=== PATIENT | female | born 1995 | race African-American/Black ===

== ENCOUNTER 2019-02-05 14:58 | Inpatient (IN) ==
[2019-02-05] MEDS ORDERED: ACETAMINOPHEN 325 MG TABLET PO PRN (15:13)
[2019-02-05] MEDS ORDERED: BUTORPHANOL 2 MG/ML VIAL IV PRN (15:13)
[2019-02-05] MEDS ORDERED: MEPERIDINE 50 MG/1 ML VIAL IV PRN (15:13)
[2019-02-05] MEDS ORDERED: ONDANSETRON 4 MG/2 ML VIAL IV PRN (15:13)
[2019-02-05] MEDS ORDERED: DINOPROSTONE VAG GEL 10 MG SYRINGE VAG ONE (15:29)
[2019-02-05 15:40] LABS: Basophils % 0.2 % (0.0-0.8); Eosinophils % 0.4 % (0.00-10.9); Hematocrit 30.6 VOL% (35.7-47.0); Immature Granulocytes % 0.6 %; Immature Granulocytes Absolute 0.03 #; Lymphocytes # 1.5 10*3/uL (1.4-4.0); Lymphocytes % 30.3 % (21.3-54.2); Mean Corpuscular HGB Conc 32.7 GM/DL (32-36); Mean Corpuscular Volume 95.9 FL (87-102); Mean Platelet Volume 9.4 FL (9.6-12.0); Monocytes % 9.4 % (1.7-12.7); Neutrophils % 59.1 % (38.7-73.9); Platelet Count 244 T/CUMM (130-400); Red Blood Count 3.19 MC/CUMM (3.8-5.5); Red Cell Distribution Width 13.6 % (9.3-17.3); White Blood Count 4.9 T/CUMM (4-12)
[2019-02-05 16:03] LABS: Albumin 2.5 G/DL (3.4-5.0); Calcium 8.1 MG/DL (8.5-10.1); Osmolality,Calculated 273.7 MOS/KG (273-304); Total Protein 6.8 G/DL (6.4-8.3)
[2019-02-05] MEDS ORDERED: diphenhydrAMINE 50 MG/1 ML VIAL IV ONE (18:00)
[2019-02-05] MEDS: LACTATED RINGERS 1,000 ML IV SCH ×2 (18:10→20:56)
[2019-02-05] MEDS ORDERED: hydrOXYzine HCL 25 MG/1 ML VIAL IM PRN (20:05)
[2019-02-05] MEDS ORDERED: PROMETHAZINE 25 MG/1 ML VIAL IM ONE (20:05)
[2019-02-05] MEDS ORDERED: NALOXONE 0.4 MG/ML VIAL IV PRN (20:05)
[2019-02-05] MEDS ORDERED: diphenhydrAMINE 50 MG/1 ML VIAL IV PRN ×2 (20:05)
[2019-02-05] MEDS ORDERED: ePHEDrine 50 MG/ML AMP IV PRN (20:05)
[2019-02-05] MEDS ORDERED: CITRIC ACID/SODIUM CITRATE 30 ML UDCUP PO ONE (20:06)
[2019-02-05] MEDS ORDERED: FAMOTIDINE 20 MG/2 ML VIAL IV ONE (20:06)
[2019-02-05] MEDS ORDERED: fentaNYL 2 MCG/ROPIV 0.2% EPID 100 ML EPIDURAL SCH (20:30)
[2019-02-06] MEDS ORDERED: OXYTOCIN/LR 30 UNIT/1,000 ML BAG IV ONE (01:03)
[2019-02-06] MEDS ORDERED: miSOPROStol 200 MCG TABLET ONE (01:04)
[2019-02-06] MEDS ORDERED: CARBOPROST TROMETHAMINE 250 MCG/ML AMP IM ONE (01:05)
[2019-02-06] MEDS ORDERED: METHYLERGONOVINE 0.2 MG/1 ML AMP ONE (01:05)
[2019-02-06] MEDS ORDERED: OXYTOCIN/LR 20 UNIT/1,000 ML BAG IV SCH (02:00)
[2019-02-06 04:11] LABS: Cord Venous Blood HCO3 23.5 MMOL/L; Cord Venous Blood PCO2 44.1 MMHG; Cord Venous Blood PO2 31.5 MMHG
[2019-02-06] MEDS ORDERED: MEASLES/MUMPS/RUBELLA VACCINE 0.5 ML VIAL SUBCUT ONE (04:32)
[2019-02-06] MEDS ORDERED: BISACODYL 10 MG SUPP RECTAL PRN (04:32)
[2019-02-06] MEDS ORDERED: WITCH HAZEL PADS 100/JAR TOP PRN (04:32)
[2019-02-06] MEDS ORDERED: LANOLIN 50% CREAM 0.3 OZ TUBE TOP PRN (04:32)
[2019-02-06] MEDS ORDERED: HYDROCORTISONE 2.5% RECTAL CREAM 30 GM TUBE TOP PRN (04:32)
[2019-02-06] MEDS ORDERED: ACETAMINOPHEN 325 MG TABLET PO PRN (04:32)
[2019-02-06] MEDS ORDERED: oxyCODONE/ACETAMINOPHEN 5-325 MG TABLET PO PRN (04:32)
[2019-02-06] MEDS ORDERED: ONDANSETRON 4 MG/2 ML VIAL IV PRN (04:32)
[2019-02-06] MEDS ORDERED: OXYTOCIN/LR 20 UNIT/1,000 ML BAG IV ONE (04:32)
[2019-02-06] MEDS ORDERED: BENZOCAINE 20%/MENTHOL 0.5% SPRAY 56 GM CAN TOP PRN (04:32)
[2019-02-06] MEDS ORDERED: RHO(D) IMMUNE GLOBULIN 300 MCG SYRINGE IM ONE (04:32)
[2019-02-06] MEDS ORDERED: DIPH/TET/ACEL PERT BOOSTER VACCINE 0.5 ML VIAL IM ONE (04:32)
[2019-02-06] MEDS: IBUPROFEN 800 MG TABLET PO PRN ×2 (06:06→15:45)
[2019-02-06] MEDS: oxyCODONE/ACETAMINOPHEN 5-325 MG TABLET PO PRN ×3 (08:52→22:07)
[2019-02-06] MEDS: DOCUSATE SODIUM 100 MG CAPSULE PO SCH ×2 (08:52→22:07)
[2019-02-07] MEDS: oxyCODONE/ACETAMINOPHEN 5-325 MG TABLET PO PRN (04:20)
[2019-02-07 05:44] LABS: Basophils % 0.1 % (0.0-0.8); Eosinophils % 0.5 % (0.00-10.9); Hematocrit 29.4 VOL% (35.7-47.0); Hemoglobin 9.7 GM/DL (12.0-16.0); Immature Granulocytes % 0.4 %; Immature Granulocytes Absolute 0.03 #; Lymphocytes # 1.8 10*3/uL (1.4-4.0); Lymphocytes % 24.5 % (21.3-54.2); Mean Corpuscular Volume 92.2 FL (87-102); Mean Platelet Volume 9.6 FL (9.6-12.0); Monocytes % 6.8 % (1.7-12.7); Neutrophils % 67.7 % (38.7-73.9); Platelet Count 242 T/CUMM (130-400); Red Blood Count 3.19 MC/CUMM (3.8-5.5); Red Cell Distribution Width 13.5 % (9.3-17.3); White Blood Count 7.5 T/CUMM (4-12)
[2019-02-07] MEDS: IBUPROFEN 800 MG TABLET PO PRN ×2 (08:58→14:40)
[2019-02-07] MEDS: DOCUSATE SODIUM 100 MG CAPSULE PO SCH (08:58)
[2019-02-07 11:13] VITALS: BP 111/66
[2019-02-08] MEDS ORDERED: INFLUENZA VIRUS VACCINE 0.5 ML SYRINGE IM ONE (15:44)
== END 2019-02-07 16:45 | disposition home or self-care (01) | DRG 560 ==
LOC: N.LAB 14:58 → N.LD 15:00 → N.OB 02-06 08:46
PROVIDERS: ADMIT Obstetrics & Gynecology; ATTEND Obstetrics & Gynecology

== ENCOUNTER 2021-10-18 23:54 | Inpatient (IN) ==
[2021-10-19] MEDS ORDERED: OXYTOCIN/LR 20 UNIT/1,000 ML BAG IV ONE ×2 (00:02→12:50)
[2021-10-19] MEDS ORDERED: LACTATED RINGERS 500 ML IV PRN (00:02)
[2021-10-19] MEDS ORDERED: BUTORPHANOL 2 MG/ML VIAL IV PRN (00:02)
[2021-10-19] MEDS ORDERED: ACETAMINOPHEN 500 MG TABLET PO PRN (00:02)
[2021-10-19] MEDS ORDERED: CARBOPROST TROMETHAMINE 250 MCG/ML AMP IM PRN (00:02)
[2021-10-19] MEDS ORDERED: miSOPROStoL 200 MCG TABLET RECTAL PRN (00:02)
[2021-10-19] MEDS ORDERED: MEPERIDINE 50 MG/1 ML VIAL IV PRN (00:02)
[2021-10-19] MEDS ORDERED: BUTORPHANOL 1 MG/ML VIAL IV PRN (00:02)
[2021-10-19] MEDS ORDERED: FAMOTIDINE 20 MG/2 ML VIAL IV PRN (00:02)
[2021-10-19] MEDS ORDERED: METHYLERGONOVINE 0.2 MG/1 ML AMP IM PRN (00:02)
[2021-10-19] MEDS ORDERED: ONDANSETRON 4 MG/2 ML VIAL IV PRN (00:02)
[2021-10-19] MEDS ORDERED: TRANEXAMIC ACID 1,000 MG in SODIUM CHLORIDE 0.9% 100 ML IV PRN (00:02)
[2021-10-19] MEDS: LACTATED RINGERS 1,000 ML IV SCH ×3 (00:38→15:12)
[2021-10-19 00:43] LABS: Basophils % 0.2 % (0.0-0.8); Eosinophils % 0.2 % (0.00-10.9); Hematocrit 30.4 VOL% (35.7-47.0); Hemoglobin 9.6 GM/DL (12.0-16.0); Immature Granulocytes % 0.8 %; Immature Granulocytes Absolute 0.04 #; Lymphocytes # 1.8 10*3/uL (1.4-4.0); Lymphocytes % 35.4 % (21.3-54.2); Mean Corpuscular HGB Conc 31.6 GM/DL (32-36); Mean Corpuscular Volume 84.2 FL (87-102); Monocytes # 0.5 10*3/uL (0.11-0.8); Monocytes % 9.2 % (1.7-12.7); Neutrophils % 54.2 % (38.7-73.9); Platelet Count 382 T/CUMM (130-400); Red Blood Count 3.61 MC/CUMM (3.8-5.5); Red Cell Distribution Width 14.4 % (9.3-17.3); White Blood Count 5.1 T/CUMM (4-12)
[2021-10-19 01:22] LABS: Alanine Aminotransferase 18 U/L (13-56); Albumin 2.6 G/DL (3.4-5.0); Alkaline Phosphatase 125 U/L (45-117); Aspartate Amino Transferase 17 U/L (0-37); Bilirubin,Total < 0.39 MG/DL (0.20-1.00); Blood Urea Nitrogen 9 MG/DL (7-18); Calcium 8.5 MG/DL (8.5-10.1); Carbon Dioxide 23 MMOL/L (21-32); Chloride 110 MMOL/L (98-107); Glucose 125 MG/DL (74-106); Osmolality,Calculated 276.5 MOS/KG (273-304); Potassium 3.5 MMOL/L (3.5-5.1); Sodium 139 MMOL/L (136-145); Total Protein 7.1 G/DL (6.4-8.2)
[2021-10-19 01:30] LABS: Reactive Lymphocytes 1+
[2021-10-19 01:31] LABS: Hypochromia 1+; Ovalocytes 1+; Platelet Estimate Increased; Tear Drop Cells Few
[2021-10-19] MEDS ORDERED: OXYTOCIN/LR 20 UNIT/1,000 ML BAG IV SCH (03:00)
[2021-10-19 04:03] LABS: Glucose,Urine (UA) Negative (Negative); Hyaline Casts,Urine 2 /LPF (0-3); Mucus,Urine Many /LPF (Occasional); Protein,Urine Trace mg/dL (Negative); Squamous Epithelial Cell,Urine Occasional /HPF (0-10); Urine Appearance Clear (Clear); Urine Color Yellow (Yellow); Urine Specific Gravity 1.025 (1.001-1.035)
[2021-10-19 04:04] LABS: Bilirubin,Urine Negative (Negative); Blood, Urine Negative (Negative); Ketones,Urine Negative (Negative); Nitrite,Urine Negative (Negative)
[2021-10-19 06:27] LABS: RPR Confirm - Less than 1 yr REACTIVE (Nonreactive)
[2021-10-19] MEDS ORDERED: hydrOXYzine HCL 25 MG/1 ML VIAL IM PRN (07:39)
[2021-10-19] MEDS ORDERED: CITRIC ACID/SODIUM CITRATE 30 ML UDCUP PO ONE (07:39)
[2021-10-19] MEDS ORDERED: LACTATED RINGERS 1,000 ML IV ONE (07:39)
[2021-10-19] MEDS ORDERED: ePHEDrine 50 MG/ML VIAL IV PRN (07:39)
[2021-10-19] MEDS ORDERED: diphenhydrAMINE 50 MG/1 ML VIAL IV PRN ×2 (07:39)
[2021-10-19] MEDS ORDERED: NALOXONE 0.4 MG/ML VIAL IV PRN (07:39)
[2021-10-19] MEDS ORDERED: PROMETHAZINE 25 MG/1 ML VIAL IM ONE (07:39)
[2021-10-19] MEDS ORDERED: fentaNYL 2 MCG/ROPIV 0.2% EPID 100 ML EPIDURAL SCH (08:00)
[2021-10-19 09:50] LABS: Mucus,Urine Moderate /LPF (Occasional); RBC,Urine 2 /HPF (0-4); Squamous Epithelial Cell,Urine Occasional /HPF (0-10)
[2021-10-19 09:51] LABS: Bilirubin,Urine Negative (Negative); Blood, Urine Negative (Negative); Glucose,Urine (UA) Negative (Negative); Ketones,Urine Negative (Negative); Nitrite,Urine Negative (Negative); Protein,Urine Trace mg/dL (Negative); Urine Appearance Clear (Clear); Urine Color Yellow (Yellow); Urine Specific Gravity 1.025 (1.001-1.035)
[2021-10-19] MEDS ORDERED: miSOPROStoL 200 MCG TABLET ONE (12:49)
[2021-10-19] MEDS ORDERED: TRANEXAMIC ACID 1,000 MG/10 ML VIAL ONE (12:49)
[2021-10-19] MEDS ORDERED: CARBOPROST TROMETHAMINE 250 MCG/ML AMP IM ONE (12:50)
[2021-10-19] MEDS ORDERED: METHYLERGONOVINE 0.2 MG/1 ML AMP ONE (12:50)
[2021-10-19] MEDS ORDERED: SODIUM CHLORIDE 0.9% 0 ML IV ONE (12:50)
[2021-10-19 15:58] LABS: Cord Venous Blood HCO3 23.7 MMOL/L; Cord Venous Blood PCO2 43.5 MMHG; Cord Venous Blood PO2 29.9
[2021-10-19] MEDS ORDERED: oxyCODONE/ACETAMINOPHEN 5-325 MG TABLET PO ONE (19:28)
[2021-10-19] MEDS ORDERED: oxyCODONE/ACETAMINOPHEN 5-325 MG TABLET PO PRN (21:31)
[2021-10-19] MEDS: IBUPROFEN 800 MG TABLET PO PRN (21:43)
[2021-10-19] MEDS ORDERED: HYDROCORTISONE 2.5% RECTAL CREAM 30 GM TUBE TOP PRN (22:18)
[2021-10-19] MEDS ORDERED: BENZOCAINE 20%/MENTHOL 0.5% SPRAY 56 GM CAN TOP PRN (22:19)
[2021-10-19] MEDS ORDERED: WITCH HAZEL PADS 100/JAR TOP PRN (22:19)
[2021-10-20] MEDS: IBUPROFEN 800 MG TABLET PO PRN ×3 (03:41→21:05)
[2021-10-20] MEDS: oxyCODONE/ACETAMINOPHEN 5-325 MG TABLET PO PRN ×4 (03:42→22:17)
[2021-10-20 04:41] LABS: Eosinophils % 0.4 % (0.00-10.9); Hematocrit 27.8 VOL% (35.7-47.0); Hemoglobin 8.9 GM/DL (12.0-16.0); Immature Granulocytes % 0.4 %; Immature Granulocytes Absolute 0.04 #; Lymphocytes # 1.8 10*3/uL (1.4-4.0); Lymphocytes % 19.9 % (21.3-54.2); Mean Platelet Volume 9.8 FL (9.6-12.0); Monocytes # 0.9 10*3/uL (0.11-0.8); Monocytes % 9.5 % (1.7-12.7); Neutrophils % 69.8 % (38.7-73.9); Platelet Count 312 T/CUMM (130-400); Red Blood Count 3.35 MC/CUMM (3.8-5.5); Red Cell Distribution Width 14.4 % (9.3-17.3)
[2021-10-20] MEDS: FERROUS SULFATE 325 MG TABLET PO SCH ×3 (08:38→21:06)
[2021-10-20] MEDS: DOCUSATE SODIUM 100 MG CAPSULE PO SCH ×2 (08:38→21:06)
[2021-10-20] MEDS: MULTIVITAMIN (PRENATAL) TABLET PO SCH (10:33)
[2021-10-21] MEDS: IBUPROFEN 800 MG TABLET PO PRN ×2 (03:38→10:27)
[2021-10-21 07:26] VITALS: BP 95/56
[2021-10-21] MEDS: MULTIVITAMIN (PRENATAL) TABLET PO SCH (08:33)
[2021-10-21] MEDS: DOCUSATE SODIUM 100 MG CAPSULE PO SCH (08:33)
[2021-10-21] MEDS: FERROUS SULFATE 325 MG TABLET PO SCH (08:33)
[2021-10-21] MEDS: oxyCODONE/ACETAMINOPHEN 5-325 MG TABLET PO PRN (10:28)
== END 2021-10-21 13:15 | disposition home or self-care (01) | DRG 560 ==
LOC: N.LD 23:54 → N.OB 10-19 21:20
PROVIDERS: ADMIT Obstetrics & Gynecology; ATTEND Obstetrics & Gynecology